=== PATIENT | female | born 1965 | race Caucasian/White ===

== ENCOUNTER 2023-10-27 09:24 | Emergency (ER) | payer SELFPAY ==
--- NOTE | 2023-10-27 09:27 | [facility].EDGENADL ---
Discharge Plan Disposition Patient Disposition: Home, Self-Care Condition: Fair Referrals Follow up/Referrals: Josafat Williamson DO [Staff Physician] - See instructions Teto Rockwell MD [Staff Physician] - See instructions Activity Restrictions/Add. Instructions Additional Instructions/Restrictions: It appears on my ultrasound that you have a rotator cuff injury. After discussion of my findings on my rotmv-pa-bhto ultrasound, after shared decision making regarding the benefits of further workup in the emergency department, if elected to decline further workup. That being said please return with new or worsening symptoms. Clinical Impressions Clinical Impression: Rotator cuff injury Qualifiers: Encounter type: initial encounter Laterality: right Qualified Code(s): S46.001A - Unspecified injury of muscle(s) and tendon(s) of the rotator cuff of right shoulder, initial encounter Discharge ED Provider: Grant Cabrera General Adult HPI General Chief complaint: Extremity Problem,Nontraumatic Stated complaint: shoulder,kneck and head pain Time Seen by Provider: 10/27/23 09:27 History of Present Illness HPI narrative: Patient presents with shoulder pain, localized to her nondominant right shoulder that is nonradiating and severe in nature. She has not had similar symptoms before. No previous therapies outside of gbrk-vnu-pvyjali analgesia. No pain elsewhere. Denies fevers or chills. 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 No blood thinner usage. No history of gout. Denies chronic medical issues. Denies daily medication use. Please note that above description of symptoms, in this electronic medical record under categorization of recalled from ER triage doctor by RN are reflective of an initial nursing assessment, however, is not reflective of my full history and physical exam that was personally taken and clarified. Consequentially, this preceding description of symptoms, which may include the patient's categorized chief complaint in the EMR, do not reflect my personal clinical impression, and the ultimate description of history of present illness and patient stated complaints should be deferred to this section of the note. Unless stated otherwise or congruent with this section of the note, additional signs, symptoms, or incongruence should be interpreted as inaccurate with my clinical impression. Related Data Allergies Allergy/AdvReac Type Severity Reaction Status Date / Time No Known Allergies Allergy Verified 10/27/23 09:55 [facility] Disclaimer: The information contained in this section may have been updated after the patient was seen, as this information can be updated by other users. Social History Smoking Status: Current every day smoker alcohol intake: current current occupational status: employed Travel in the last 8 weeks: None ROS Obtained: Yes Systems reviewed as appropriate & no additional complaints except as documented As per HPI Physical Exam General General appearance: alert and in no apparent distress Head Head exam: atraumatic and normocephalic Eye Eye exam: Present normal appearance Neck Neck exam: Present normal inspection Chest Chest inspection: Present normal inspection and symmetric chest wall rise Respiratory Respiratory exam: Present normal lung sounds bilaterally; Absent respiratory distress Cardiovascular Cardiovascular exam: Present regular rate and normal rhythm Abdominal Exam Abdominal exam: Present soft Extremities Exam Extremities exam: Present normal inspection (Isolated tenderness to palpation on ventral aspect of right shoulder, no deformity, pain with abduction. No pain to palpation elsewhere. Distally neurovascularly intact.) Neurological Exam Neurological exam: Present alert and oriented X3 Psychiatric Psychiatric exam: Present normal affect and normal mood Skin Skin exam: Present warm and dry Medical Decision Making Medical Records Medical records reviewed: Yes I reviewed the patient's medical records. Juan M Inquiry Pt receiving controlled substance: No Vital Signs: 10/27/23 09:28 10/27/23 10:14 Temperature 98.2 F 98.2 F Temperature Source Oral Pulse Rate 91 H Pulse Rate [Left] 88 Respiratory Rate 16 18 Blood Pressure 175/122 H Blood Pressure [Right Arm] 191/125 H Blood Pressure Mean [Right Arm] 147 Blood Pressure Source [Right Arm] Automatic Cuff Blood Pressure Position [Right Arm] Sitting 02 Sat by Pulse Oximetry 97 Oxygen Delivery Method Room Air Orders (Tests/Meds): ED MEDICATIONS Discontinued Medications Generic Name Dose Route Start Last Admin Trade Name Chuckie PRN Reason Stop Dose Admin Ibuprofen 600 mg 10/27/23 10:05 10/27/23 10:07 Ibuprofen 600 Mg Tablet PO 10/27/23 10:06 600 mg ONCE ONE Administration Oxycodone HCl 5 mg 10/27/23 09:53 10/27/23 10:06 Oxycodone 5mg Immediate Release Tablet PO 10/27/23 09:54 Not Given ONCE ONE ORDERS Category Date Time Status ECG initial Besson Routine Y 10/27/23 09:37 Completed Medical Decision Narrative: Patient with history and exam per above presenting for evaluation of right shoulder pain Diagnoses considered include rotator cuff injury, underlying osseous abnormality or lesion, referred pain ED workup and treatment included: Stotd-tj-tmly ultrasound which showed what appears to be partial to complete tear of supraspinatus tendon At this time patient is requesting to be discharged soon as possible. I suggested we perform a x-ray to evaluate for underlying osseous abnormality. She declines this. I have a lower index of suspicion for referred pain from something such as ACS. This time after shared decision making it is reasonable for patient directed discharge. My clinical impression at this time is most consistent with soft tissue injury I discussed my clinical impression with patient and answered all questions. The patient was advised that persistent or worsening symptoms require further evaluation. I confirmed the patient's understanding of this discussion. Critical Care Critical Care Time Critical Care Time: No
[2023-10-27 09:28] VITALS: BP 191/125; PULSE 88; RESP 16; TEMP 36.8; O2SAT 97; BMI 22.6
--- NOTE | 2023-10-27 09:37 | ECG_ITS ---
APPROVED REPORT Exam: Resting ECG HR:78 bpm ECG Measurements Heart Rate 78 AXES PA 132 P 58 QRSd 92 QRS 77 QT 390 T 79 QTc 424 Conclusion SINUS RHYTHM NORMAL ECG UNCONFIRMED REPORT Electronically signed by : Ovi Mills MD 10/27/2023 19:02:59
[2023-10-27 09:48] VITALS: BMI 49.8
--- NOTE | 2023-10-27 09:53 | PC.NURSE ---
pt declines chest pain work up. did a bedside US and found a tear in her shoulder. After telling the pt this she states she does not want to spend anymore money and would like to be d/c.
[2023-10-27] MEDS: IBUPROFEN 600 MG TABLET PO (10:07)
[2023-10-27 10:14] VITALS: BP 175/122; PULSE 91; RESP 18; TEMP 36.8
--- NOTE | 2023-10-30 00:02 | PC.NURSE ---
chart opened for EMS face sheet
== END 2023-10-27 10:15 | disposition home or self-care (01) ==
PROVIDERS: Emergency Provider Emergency Medicine
DX: S46.001A Unspecified injury of muscle(s) and tendon(s) of the rotator cuff of right shoulder, initial encounter (principal); R51.9 Headache, unspecified; M54.2 Cervicalgia; F17.200 Nicotine dependence, unspecified, uncomplicated; X58.XXXA Exposure to other specified factors, initial encounter
CPT/HCPCS: 93005; 99284